=== PATIENT | female | born 1940 | race Caucasian/White ===

== ENCOUNTER 2016-07-22 08:47 | Day surgery (SDC) | payer BC ==
--- NOTE | ~2016-07-22 | EGD ---
EGD REPORT [facility] [address] [id number] NAME: JOANN ESCOBEDO : [birth year] STATUS : REG [facility]#: [id number] AGE: 76 ADM/REG DATE : 07/22/16 MR#: [id number] REPORT SERV DATE: 07/22/16 DICTATED BY: JOHANNE MACKENZIE DATE: 07/22/16 REPORT STATUS : Draft TRANSCRIBED BY: [facility] DATE: 07/22/16 Endoscopy Center Patient Name: Joann Escobedo Date of : 1940 Attending MD: JOHANNE MACKENZIE MD Procedure Date No Time: 07/22/2016 Procedure: Upper GI endoscopy Indications: Heme positive stool Referring MD: Linette Salcido MD Medicines: Monitored Anesthesia Care Complications: No immediate complications. Procedure: Pre-Anesthesia Assessment: - ASA Grade Assessment: III - A patient with severe systemic disease. After obtaining informed consent, the endoscope was passed under direct vision. Throughout the procedure, the patient's blood pressure, pulse, and oxygen saturations were monitored continuously. The GIF [id number] [id number] was introduced through the mouth, and advanced to the second part of duodenum. The upper GI endoscopy was accomplished without difficulty. The patient tolerated the procedure well. Findings: The examined esophagus was normal. A small hiatus hernia was present. The duodenal bulb and 2nd part of the duodenum were normal. The cardia and gastric fundus were normal on retroflexion. Impression: - Normal esophagus. - Hiatus hernia. - Normal duodenal bulb and 2nd part of the duodenum. Recommendation: - Perform a colonoscopy today. Procedure Code(s): --- Professional --- 38475, Esophagogastroduodenoscopy, flexible, transoral; diagnostic, including collection of specimen(s) by brushing or washing, when performed (separate procedure) Diagnosis Code(s): --- Professional --- K44.9, Diaphragmatic hernia without obstruction or gangrene R19.5, Other fecal abnormalities EGD REPORT [facility] [address] [address] NAME: JOANN ESCOBEDO : [birth year] STATUS : REG [facility]#: [id number] AGE: 76 ADM/REG DATE : 07/22/16 MR#: [id number] REPORT SERV DATE: 07/22/16 DICTATED BY: JOHANNE MACKENZIE DATE: 07/22/16 REPORT STATUS : Draft TRANSCRIBED BY: [employer] DATE: 07/22/16 CPT copyright 2013 [employer]. All rights reserved. The codes documented in this report are preliminary and upon planer tailer review may be revised to meet current compliance requirements. JOHANNE MACKENZIE MD 07/22/2016 10:02 AM This report has been signed electronically. Number of Addenda: 0 Note Initiated On: 07/22/2016 9:49 AM Scope Withdrawal Time 0 hours 0 minutes 0 seconds [id number] [id number]
--- NOTE | ~2016-07-22 | EGD ---
EGD REPORT [facility] [address] [address] NAME: JOANN ESCOBEDO : [birth year] STATUS : REG [facility] [place] PAT#: [id number] AGE: 76 ADM/REG DATE : 07/22/16 MR#: [id number] REPORT SERV DATE: 07/22/16 DICTATED BY: JOHANNE MACKENZIE DATE: 07/22/16 REPORT STATUS : Draft TRANSCRIBED BY: [facility] DATE: 07/22/16 Endoscopy Center Patient Name: Joann Escobedo Date of : 1940 Attending MD: JOHANNE MACKENZIE MD Procedure Date No Time: 07/22/2016 Procedure: Colonoscopy Indications: Heme positive stool Referring MD: Linette Salcido MD Medicines: Monitored Anesthesia Care Complications: No immediate complications. Procedure: Pre-Anesthesia Assessment: - ASA Grade Assessment: III - A patient with severe systemic disease. After I obtained informed consent, the scope was passed under direct vision. Throughout the procedure, the patient's blood pressure, pulse, and oxygen saturations were monitored continuously. The PCF [id number] was introduced through the anus and advanced to the terminal ileum, with identification of the appendiceal orifice and IC valve. The colonoscopy was performed with moderate difficulty due to restricted mobility of the colon, significant looping and a tortuous colon. The patient tolerated the procedure fairly well. The quality of the bowel preparation was adequate. Findings: The digital rectal exam was normal. Pertinent negatives include no palpable rectal lesions. The terminal ileum appeared normal. A few diverticula were found in the sigmoid colon. The colon was very tortuous in the distal sigmoid colon. Three sessile polyps were found in the ascending colon. The polyps were 3 to 7 mm in size. These polyps were removed with a cold biopsy forceps. Resection and retrieval were complete. Hemorrhoids were found during retroflexion and were moderate. Impression: - The examined portion of the ileum was normal. - Diverticulosis in the sigmoid colon. - Three 3 to 7 mm polyps in the ascending colon. Resected and retrieved. - Hemorrhoids. Recommendation: - Patient has a contact number available for emergencies. The signs and symptoms of potential delayed EGD REPORT [address] [address] NAME: JOANN ESCOBEDO : [birth year] STATUS : REG [facility] [place] PAT#: [id number] AGE: 76 ADM/REG DATE : 07/22/16 MR#: [id number] REPORT SERV DATE: 07/22/16 DICTATED BY: JOHANNE MACKENZIE DATE: 07/22/16 REPORT STATUS : Draft TRANSCRIBED BY: [employer] DATE: 07/22/16 complications were discussed with the patient. Return to normal activities tomorrow. Written discharge instructions were provided to the patient. - Regular diet. - Continue present medications. - Resume ELIQUIS at prior dose tomorrow. Refer to managing physician for further adjustment of therapy. - Due to patient age no further polyp surveillance colonoscopies planned. Procedure Code(s): --- Professional --- 44422, Colonoscopy, flexible, proximal to splenic flexure; with biopsy, single or multiple Diagnosis Code(s): --- Professional --- K64.9, Unspecified hemorrhoids K57.30, Diverticulosis of large intestine without perforation or abscess without bleeding D12.2, Benign neoplasm of ascending colon R19.5, Other fecal abnormalities CPT copyright 2013 [employer]. All rights reserved. The codes documented in this report are preliminary and upon certified medical coder review may be revised to meet current compliance requirements. JOHANNE MACKENZIE MD 07/22/2016 10:32 AM This report has been signed electronically. Number of Addenda: 0 Note Initiated On: 07/22/2016 9:46 AM Scope Withdrawal Time 0 hours 10 minutes 29 seconds [address] [address]
[~2016-07-22 08:47] MED LIST: ELIQUIS 5 MG TAB5 MG PO; MAX25 PO; VASOTEC10 PO; VITAMIN D1000 UNI1 PO
== END 2016-07-22 23:59 | disposition home health service (06) ==
LOC: DMU 08:47
PROVIDERS: Internal Medicine Gastroenterology
PROC: 0DJ08ZZ Inspection of Upper Intestinal Tract, Via Natural or Artificial Opening Endoscopic (ICD-10-PCS; principal; 2016-07-22 11:00)
PROC: 0DBK8ZX Excision of Ascending Colon, Via Natural or Artificial Opening Endoscopic, Diagnostic (ICD-10-PCS; 2016-07-22 11:00)
DX: D12.2 Benign neoplasm of ascending colon (principal); K63.5 Polyp of colon; I48.91 Unspecified atrial fibrillation; I10 Essential (primary) hypertension; K44.9 Diaphragmatic hernia without obstruction or gangrene; K57.30 Diverticulosis of large intestine without perforation or abscess without bleeding; K64.9 Unspecified hemorrhoids; Z88.2 Allergy status to sulfonamides; Z79.899 Other long term (current) drug therapy; Z98.51 Tubal ligation status; Z98.890 Other specified postprocedural states
CPT/HCPCS: 74020; 88305